=== PATIENT | female | born 1995 | race Caucasian/White ===

== ENCOUNTER 2018-08-28 09:38 | Outpatient (CLI) | payer OTHER ==
[~2018-08-28] VITALS: Ht 162.6 cm; Wt 72.4 kg
[2018-08-28] MEDS ORDERED: PREN-93 PO (09:50)
[2018-08-28 09:51] VITALS: BP 86/48; PULSE 128; RESP 18
[2018-08-28 09:52] VITALS: Ht 162.6 cm; Wt 72.4 kg
[2018-08-28] MEDS ORDERED: LACTATED RINGER'S 1,000 ML IV SCH (10:11)
[2018-08-28] MEDS ORDERED: ACETAMINOPHEN 500 MG TAB PO STA (10:11)
[2018-08-28] MEDS ORDERED: LACTATED RINGER'S 1,000 ML IV ONE (10:30)
[2018-08-28] MEDS ORDERED: ACET/BUTAL/CAFF TAB PO PRN (11:00)
[2018-08-28] MEDS ORDERED: NITROFURANTOIN (SR) 100 MG CAP PO STA (11:28)
[2018-08-28] MEDS ORDERED: NITR100C6 PO (11:32)
--- NOTE | 2018-08-28 11:33 | PN ---
Triage Information Date/Time Subjective: 23 year-old G 1 P at 30 1/7 weeks gestation presents with complaints of lower abdominal pain and headache. The patient reports the pain is a 7 out of 10 in severity. Worse with movement. Reports generalized chills. Denies any sore throat or cough. Denies any recent sick contacts or travel outside the [place]. Objective: Vitals: stable General: nad Musculo: no cva ttp Fundus: gravid SVE: per RN Extremities: nttp Electronic monit: 150 baseline/mod [place]/no decels/no accels BPP 09/29 Assessment/Plan: Disposition: discharge to home Reason for visit: Abd/pelvic pain Weeks of Gestation 30 02/28 /Para 1/0 Objective Vital Signs Date Temp Pulse Resp B/P (MAP) Pulse Ox O2 O2 Flow FiO2 Time Delivery Rate 08/28/18 99.9 11:15 08/28/18 128 18 86/48 (61) Room Air 09:51 Results/Medications Result Diagram: 08/28/18 1030 08/28/18 1030 Results 24 hrs Laboratory Tests Test 08/28/18 09:40 08/28/18 10:30 Urine Color YELLOW Urine Clarity SLIGHTLY CLOUDY A Urine pH 7.0 Urine Specific [place] 1.011 Urine Ketones TRACE A Urine Nitrite POSITIVE A Urine Bilirubin NEGATIVE Urine Urobilinogen NEGATIVE Urine Leukocyte Esterase TRACE A Urine Microscopic RBC 1 Urine Microscopic WBC 20 H Urine Squamous Epithelial Cells FEW Urine Bacteria FEW A Urine Hemoglobin NEGATIVE Urine Glucose NEGATIVE Urine Total Protein NEGATIVE White Blood Count 14.9 H Red Blood Count 3.10 L Hemoglobin 8.4 L Hematocrit 25.3 L Mean Corpuscular Volume 81.6 L Mean Corpuscular Hemoglobin 27.1 L Mean Corpuscular Hemoglobin Concent 33.2 Red Cell Distribution Width 13.9 Platelet Count 232 Mean Platelet Volume 9.9 Immature Granulocytes % 0.600 H Neutrophils % 86.5 H Lymphocytes % 5.5 L Monocytes % 7.2 Eosinophils % 0.0 Basophils % 0.2 Nucleated Red Blood Cells % 0.0 Immature Granulocytes # 0.090 H Neutrophils # 12.9 H Lymphocytes # 0.8 Monocytes # 1.1 H Eosinophils # 0.0 Basophils # 0.0 Nucleated Red Blood Cells # 0.0 Sodium Level 135 Potassium Level 3.7 Chloride Level 103 Carbon Dioxide Level 22 Anion Gap 10 Blood Urea Nitrogen 4 L Creatinine 0.48 Est Glomerular Filtrat Rate mL/min > 60 Glucose Level 119 Uric Acid 2.8 L Calcium Level 8.5 Total Bilirubin 0.6 Direct Bilirubin 0.00 Indirect Bilirubin 0.6 Aspartate Amino Transf (AST/SGOT) 19 Alanine Aminotransferase (ALT/SGPT) 15 Alkaline Phosphatase 85 Total Protein 6.7 Albumin 3.3 Globulin 3.40 H Albumin/Globulin Ratio 0.97 Medications Current Medications Lactated Ringer's 1,000 ml @ 150 mls/hr Q6H40M IV ; Start 08/28/18 at 10:11 Lactated Ringer's 1,000 ml @ 1,000 mls/hr Q1H ONCE IV Last administered on 08/28/18at 10:32; Admin Dose 1,000 MLS/HR; Start 08/28/18 at 10:30; Stop 08/28/18 at 11:29 Acetaminophen/ Butalbital/ Caffeine (Fioricet) 1 tab Q6H PRN PO PAIN; Start 08/28/18 at 11:00 RAFAEL ELLER MD Aug 28, 2018 11:33
--- NOTE | 2018-08-28 11:42 | TRIAGE ---
OB Triage Datetime Report Generated by CPN: 08/28/2018 11:41 Datetime: 08/28/2018 11:00 Stage of : OB Triage Maternal Assessment Level of Consciousness: Keenly Alert, Responsive Labor Evaluation Frequency: NONE Monitor Mode: External Resting Tone [place]: Relaxed Heart Rate FHR Baseline Rate: 150 Monitor Mode: External US Variability: Moderate 6-25 bpm Accelerations: 15X15 Decelerations: None Pain Assessment Pain Scale: 0 Pain Goal: 3 Vaginal Exam Membrane Status: Intact Vaginal Bleeding: None Datetime: 08/28/2018 09:48 Assessment Type: Triage Maternal Assessment Level of Consciousness: Keenly Alert, Responsive DTR's/Clonus: DTRs 2+; No Clonus Headache: Denies Blurred Vision: No Respiratory Effort: Unlabored; Regular Rhythm; Equal Expansion Breath Sounds, Left: Clear and Equal Breath Sounds, Right: Clear and Equal Nausea/Vomiting: Denies RUQ Epigastric Pain: Denies Lower Extremities Edema: None Degree: None Upper Extremities Edema: None Degree: None Facial Edema: None Fall Risk Assessment History of Falling: (0) No Secondary Diagnosis: (0) No Ambulatory Aid: (0) Bedrest/Nurse Assist IV Therapy: (0) No Gait: (0) Normal/Bedrest/Immobile Mental Status: (0) Oriented to Own Ability Fall Score: 0 Fall Risk Score Definition: No Risk: No action required Datetime: 08/28/2018 09:47 Time of Arrival: 08/28/2018 09:30 EGA: 30.1 Arrived By: Ambulatory Arrived From: Home Chief Complaint: pt. here C/O ABD. PAIN AND CHILLS Movement: Present Contractions: Denies/Absent Rupture of Membranes: Denies Vaginal Bleeding: None Vaginal Discharge: Denies Recent Sexual Intercouse: Yes Abdominal Trauma: Not Applicable Patient Complaints: Cramping Time Provider Notified: 08/28/2018 09:45 Provider Notified: MILESTONE Initial Plan: CBC/UA/IV/SVE/O2 SAT/PIH PANEL/EKG/02SAT/BPP Datetime: 08/28/2018 09:44 Monitor Mode: External Monitor Mode: External US
--- NOTE | 2018-08-28 16:02 | RADRPT ---
Vent Rate: 104 bpm RR Interval: 576 msec [place] Interval: 110 msec QRS Duration: 67 msec QT Interval: 321 msec QTC Interval: 423 msec P-R-T [place]: 58 - 54 - 38 degrees Sinus tachycardia...rate> 99 Electronically Signed By: Khoa Sanchez
== END 2018-08-28 12:15 | disposition home or self-care (01) ==
LOC: OBT 09:38 → L-D 09:38 → OBT 12:15
PROVIDERS: ATTEND Obstetrics & Gynecology
DX: O26.893 Other specified pregnancy related conditions, third trimester (principal); R10.2 Pelvic and perineal pain; R10.30 Lower abdominal pain, unspecified; R51 Headache; Z3A.30 30 weeks gestation of pregnancy
CPT/HCPCS: 36415; 76818; 80053; 81001; 84560; 85025; 87086; 93005; 96360; J7120; Z7500; Z7610; G0463

== ENCOUNTER 2018-09-18 13:52 | Inpatient (IN) | payer OTHER ==
[~2018-09-18] VITALS: Ht 162.6 cm; Wt 68.0 kg
[~2018-09-18 13:52] MED LIST: NITR100C6 PO; PREN-93 PO
[2018-09-18 14:17] VITALS: Ht 162.6 cm; Wt 68.0 kg
[2018-09-18 14:19] VITALS: BP 92/45; PULSE 105; RESP 22
--- NOTE | 2018-09-18 14:51 | HP ---
Date/Time of Note Date/Time of Note DATE: 09/18/18 TIME: 14:48 OB - History Hx of Present Free Text/Dictation @33+wks GA with Right CVA tenderness with hx of recurrent UTI : 1 Para: 0 Care: Good Care Ultrasounds: Normal mid trimester US Obstetrical Complications: None Medical Complications: None Past Family/Social History * Past Medical, Surgical, Family and Obstetric Histories reviewed from chart. Blood Type: O- OB Admission Exam Vital Signs Vital Signs Vital Signs Date Temp Pulse Resp B/P (MAP) Pulse Ox O2 O2 Flow FiO2 Time Delivery Rate 09/18/18 99.3 105 22 92/45 (61) Room Air 14:19 Physical Exam Abdomen: WNL Extremities: Normal Cervical Dilatation: None Effacement: 0% Station: Ballotable Membranes: Intact Heart Rate: 140's Accelerations: Accelerations Present Decelerations: No Decelerations Varibility: Moderate OB Assessment/Plan Reason for admission: observation Other Assessment: PMH Recurrent UTI PSH Denies Plan: Expectant Management Other plan: IV Antibiotics U/A U/C IV Hydration Close Observation ROGELIO ELLIS M.D. Sep 18, 2018 14:51
[2018-09-18] MEDS ORDERED: LACTATED RINGER'S 1,000 ML IV SCH (14:56)
--- NOTE | 2018-09-18 14:57 | TRIAGE ---
OB Triage Datetime Report Generated by CPN: 09/18/2018 14:56 Datetime: 09/18/2018 14:53 Time of Arrival: 09/18/2018 13:47 EGA: 33.1 Arrived By: Ambulatory Arrived From: Home Chief Complaint: BLADDER PAIN AND VOMITING Movement: Present Rupture of Membranes: Denies Vaginal Bleeding: None Vaginal Discharge: Denies Recent Sexual Intercouse: Denies Patient Complaints: Contractions Time Provider Notified: 09/18/2018 14:15 Provider Notified: DR HINDS Initial Plan: EFM,ALL DR HINDS Datetime: 09/18/2018 14:29 Maternal Assessment Level of Consciousness: Keenly Alert, Responsive DTR's/Clonus: DTRs 2+; No Clonus Headache: Denies Blurred Vision: No Respiratory Effort: Unlabored; Regular Rhythm; Equal Expansion Breath Sounds, Left: Clear and Equal Breath Sounds, Right: Clear and Equal Nausea/Vomiting: Denies RUQ Epigastric Pain: Denies Facial Edema: None Temperature Route: Axillary Fall Risk Assessment History of Falling: (0) No Secondary Diagnosis: (0) No Ambulatory Aid: (0) Bedrest/Nurse Assist IV Therapy: (0) No Gait: (0) Normal/Bedrest/Immobile Mental Status: (0) Oriented to Own Ability Fall Score: 0 Fall Risk Score Definition: No Risk: No action required Datetime: 09/18/2018 14:09 Maternal Assessment Level of Consciousness: Keenly Alert, Responsive DTR's/Clonus: DTRs 2+ Headache: Denies Blurred Vision: No Nausea/Vomiting: Denies RUQ Epigastric Pain: Denies Facial Edema: None Labor Evaluation Frequency: IRREG Monitor Mode: External Duration (sec)2399: 50 Quality: Mild Pattern: Normal: <= 5 Contractions in 10 Minutes Resting Tone [place]: Relaxed Heart Rate FHR Baseline Rate: 170 Monitor Mode: External US FHR Baseline Changes: No Baseline Change Variability: Moderate 6-25 bpm Decelerations: None Pain Assessment Pain Scale: 7 Pain Presence: Constant Pain Type: Stabbing Pain Location: Abdomen Pain Goal: 2 Datetime: 08/28/2018 09:48 Fall Score: 0 Fall Risk Score Definition: No Risk: No action required Datetime: 08/28/2018 09:47 EGA: 30.1
[2018-09-18] MEDS: SOD CHLORIDE 0.9% 1,000 ML IV SCH ×2 (15:48→22:39)
[2018-09-18] MEDS: CEFTRIAXONE 1 GM/50 ML (PMX) 50 ML IVPB SCH (16:13)
[2018-09-18] MEDS ORDERED: ACETAMINOPHEN 325 MG TAB PO PRN (22:00)
[2018-09-19] MEDS: SOD CHLORIDE 0.9% 1,000 ML IV SCH ×3 (06:21→23:09)
[2018-09-19] MEDS: FERROUS SULFATE (EC) 325 MG TAB PO SCH ×2 (09:08→20:56)
[2018-09-19] MEDS: PRENATAL VITAMIN PO SCH (09:08)
--- NOTE | 2018-09-19 12:44 | QN ---
Documentation Comment progress note patient seen and evaluated no complaints vs stable afebrile ab gravid, left cva tenderness extremity no sage no calf tenderness fhr cat 1 toco no ctx a/ iup at 33 wks ga, pyelonephritis currently on iv antibiotics p/ continue present management LEWIS HINDS MD Sep 19, 2018 12:44
--- NOTE | 2018-09-19 13:26 | RADRPT ---
Vent Rate: 113 bpm RR Interval: 532 msec [place] Interval: 106 msec QRS Duration: 71 msec QT Interval: 309 msec QTC Interval: 424 msec P-R-T [place]: 29 - 66 - -1 degrees Sinus tachycardia...rate> 99 Electronically Signed By: Khoa Sanchez
[2018-09-19] MEDS: CEFTRIAXONE 1 GM/50 ML (PMX) 50 ML IVPB SCH (16:02)
[2018-09-20] MEDS: PRENATAL VITAMIN PO SCH (10:02)
[2018-09-20] MEDS: FERROUS SULFATE (EC) 325 MG TAB PO SCH (10:02)
[2018-09-20] MEDS: SOD CHLORIDE 0.9% 1,000 ML IV SCH (10:03)
--- NOTE | 2018-09-21 02:32 | DS ---
DATE OF ADMISSION: 09/18/2018 DATE OF DISCHARGE: 09/20/2018 PRIMARY DIAGNOSES: Intrauterine at 33 weeks gestational age, pyelonephritis, undelivered. PROCEDURE: None. CONDITION ON DISCHARGE: Stable. ACTIVITY: As tolerated. DIET: Regular. MEDICATIONS ON DISCHARGE: Keflex 500 mg p.o. t.i.d., #21. DISCHARGE SUMMARY: Ms. Kena Anthony presented to triage on 09/18/2018 for suspected pyelonephritis. She was started on IV antibiotics and her urine culture returned to be positive for Strep agalactiae group B. She will be discharged on the above medication. She currently denies any headache, nausea , vomiting, shortness of breath, or visual changes. She has no CVA tenderness. She will follow up w ith her primary OB in approximately 1 week. Strict and kick counts were given to rita anders. Dictated By: LEWIS AGUILERA/AMAYA Conf#: [id number] DID#: [id number]
== END 2018-09-20 18:15 | disposition home or self-care (01) | DRG 833 ==
LOC: L-D 13:52 → OBT 13:52 → L-D 14:45 → OBT 14:45 → L-D 18:49 → UNDODISIN 09-20 18:16
PROVIDERS: ADMIT Obstetrics & Gynecology; ATTEND Obstetrics & Gynecology
DX: O23.03 Infections of kidney in pregnancy, third trimester (principal); B95.1 Streptococcus, group B, as the cause of diseases classified elsewhere; Z3A.33 33 weeks gestation of pregnancy
CPT/HCPCS: 76705; 76815; 80307; 81003; 82731; 84484; 85025; 87086; 93005; G0463; J0696; J7030; J7120

== ENCOUNTER 2018-10-02 19:46 | Outpatient (CLI) | payer OTHER ==
[~2018-10-02] VITALS: Ht 162.6 cm; Wt 72.3 kg
[2018-10-02 19:59] VITALS: BP 104/61; PULSE 94; RESP 18; Ht 162.6 cm; Wt 72.3 kg
--- NOTE | 2018-10-02 21:47 | PN ---
Triage Information Date/Time Reason for visit: s/p fall Weeks of Gestation 35 weeks /Para Diabetes: none Hypertention: none Objective Vital Signs Date Temp Pulse Resp B/P (MAP) Pulse Ox O2 O2 Flow FiO2 Time Delivery Rate 10/02/18 97.9 94 18 104/61 Room Air 19:59 (75) Heart Rate: 130's Heart Rate Comments Reactive Results/Medications Result Diagram: 10/02/182047 Results 24 hrs Laboratory Tests Test 10/02/18 20:48 White Blood Count 9.6 # Red Blood Count 3.25 L Hemoglobin 8.5 L Hematocrit 26.6 L Mean Corpuscular Volume 81.8 L Mean Corpuscular Hemoglobin 26.2 L Mean Corpuscular Hemoglobin Concent 32.0 Red Cell Distribution Width 14.3 Platelet Count 292 Mean Platelet Volume 10.0 Immature Granulocytes % 0.900 H Neutrophils % 68.8 Lymphocytes % 21.1 Monocytes % 8.0 Eosinophils % 0.8 Basophils % 0.4 Nucleated Red Blood Cells % 0.0 Immature Granulocytes # 0.090 H Neutrophils # 6.6 Lymphocytes # 2.0 Monocytes # 0.8 Eosinophils # 0.1 Basophils # 0.0 Nucleated Red Blood Cells # 0.0 Imaging Results BPP 09/29 No evidence of abruption or previa Disposition: Assessment/Plan Patient fell at home on her abdomen. Patient denies any leakage of fluid or vaginal bleeding. Patient denies any pain. Patient is counseled about the need for continuous monitoring. Patient is counseled about the potential for abruptio placentae. Patient stated she understood and signed out against medical advice. MIGUEL SETHI MD Oct 02, 2018 21:47
--- NOTE | 2018-10-02 22:48 | TRIAGE ---
OB Triage Datetime Report Generated by CPN: 10/02/2018 22:48 Datetime: 10/02/2018 20:13 Stage of : OB Triage Labor Evaluation Frequency: none Monitor Mode: External Resting Tone [place]: Relaxed Heart Rate FHR Baseline Rate: 135 Monitor Mode: External US Variability: Moderate 6-25 bpm Accelerations: 15X15 Decelerations: None Category: Category I Pain Assessment Pain Scale: 0 Pain Presence: None/Denies Pain Type: N/A Pain Relief Measures: Comfort Measures Datetime: 10/02/2018 20:12 Stage of : OB Triage Datetime: 10/02/2018 20:02 Stage of : OB Triage Assessment Type: Triage Maternal Assessment Level of Consciousness: Keenly Alert, Responsive DTR's/Clonus: DTRs 2+; No Clonus Headache: Denies Blurred Vision: No Respiratory Effort: Unlabored; Regular Rhythm; Equal Expansion Breath Sounds, Left: Clear and Equal Breath Sounds, Right: Clear and Equal Nausea/Vomiting: Denies RUQ Epigastric Pain: Denies Lower Extremities Edema: None Degree: None Upper Extremities Edema: None Degree: None Facial Edema: None Temperature Route: Oral Fall Risk Assessment History of Falling: (0) No Secondary Diagnosis: (0) No Ambulatory Aid: (0) Bedrest/Nurse Assist IV Therapy: (0) No Gait: (0) Normal/Bedrest/Immobile Mental Status: (0) Oriented to Own Ability Fall Score: 0 Fall Risk Score Definition: No Risk: No action required Monitor Mode: External Monitor Mode: External US Pain Assessment Pain Scale: 0 Pain Presence: None/Denies Pain Type: N/A Pain Relief Measures: Comfort Measures Datetime: 10/02/2018 20:01 Time of Arrival: 10/02/2018 19:40 EGA: 35.1 Arrived By: Ambulatory Arrived From: Emergency Dept Chief Complaint: Patient fell onto her stomach at home. Denies any pain, leaking, or bleeding. Movement: Present Contractions: Denies/Absent Rupture of Membranes: Denies Vaginal Bleeding: None Vaginal Discharge: Denies Recent Sexual Intercouse: Denies Abdominal Trauma: Fall Patient Complaints: Other Time Provider Notified: 10/02/2018 20:12 Provider Notified: Initial Plan: EFM, VS, US, CBC, Type _ Screen Datetime: 09/20/2018 16:53 Stage of : Antepartum Temperature Route: Oral Datetime: 09/20/2018 12:02 Pain Presence: None/Denies Datetime: 09/20/2018 12:00 Stage of : Antepartum Maternal Assessment Level of Consciousness: Keenly Alert, Responsive Labor Evaluation Frequency: 1UC/HR Monitor Mode: External Duration (sec)2399: 90 Quality: Mild Resting Tone [place]: Relaxed Heart Rate FHR Baseline Rate: 135 Monitor Mode: External US Variability: Moderate 6-25 bpm Accelerations: 15X15 Decelerations: None Category: Category I Pain Assessment Pain Scale: 0 Pain Goal: 3 Membrane Status: Intact Vaginal Bleeding: None Datetime: 09/20/2018 11:00 Stage of : Antepartum Maternal Assessment Level of Consciousness: Keenly Alert, Responsive Labor Evaluation Frequency: 4UC/HR Monitor Mode: External Duration (sec)2399: 80-100 Quality: Mild Resting Tone [place]: Relaxed Heart Rate FHR Baseline Rate: 135 Monitor Mode: External US Variability: Moderate 6-25 bpm Accelerations: 15X15 Decelerations: None Category: Category I Pain Assessment Pain Scale: 0 Pain Goal: 3 Membrane Status: Intact Vaginal Bleeding: None Datetime: 09/20/2018 10:04 Assessment Type: Ongoing Assessment Maternal Assessment Level of Consciousness: Keenly Alert, Responsive DTR's/Clonus: DTRs 2+; No Clonus Headache: Denies Blurred Vision: No Respiratory Effort: Unlabored; Regular Rhythm; Equal Expansion Breath Sounds, Left: Clear and Equal Breath Sounds, Right: Clear and Equal Nausea/Vomiting: Denies RUQ Epigastric Pain: Denies Lower Extremities Edema: Bilateral Lower Extremities Degree: TRACE Upper Extremities Edema: None Degree: None Facial Edema: None Fall Risk Assessment History of Falling: (0) No Secondary Diagnosis: (0) No Ambulatory Aid: (0) Bedrest/Nurse Assist IV Therapy: (20) Yes Gait: (0) Normal/Bedrest/Immobile Mental Status: (0) Oriented to Own Ability Fall Score: 20 Fall Risk Score Definition: No Risk: No action required Datetime: 09/20/2018 10:03 Pain Assessment Pain Scale: 0 Pain Presence: None/Denies Datetime: 09/20/2018 10:00 Stage of : Antepartum Maternal Assessment Level of Consciousness: Keenly Alert, Responsive Labor Evaluation Frequency: 0 Monitor Mode: External Resting Tone [place]: Relaxed Heart Rate FHR Baseline Rate: 125 Monitor Mode: External US Variability: Moderate 6-25 bpm Accelerations: 15X15 Decelerations: None Category: Category I Pain Assessment Pain Scale: 0 Pain Goal: 3 Membrane Status: Intact Vaginal Bleeding: None Datetime: 09/20/2018 09:00 Stage of : Antepartum Maternal Assessment Level of Consciousness: Keenly Alert, Responsive Labor Evaluation Frequency: 3UC/HR Monitor Mode: External Duration (sec)2399: 60-90 Quality: Mild Resting Tone [place]: Relaxed Heart Rate FHR Baseline Rate: 125 Monitor Mode: External US Variability: Moderate 6-25 bpm Accelerations: 15X15 Decelerations: None Category: Category I Pain Assessment Pain Scale: 0 Pain Goal: 3 Membrane Status: Intact Vaginal Bleeding: None Datetime: 09/20/2018 08:00 Stage of : Antepartum Maternal Assessment Level of Consciousness: Keenly Alert, Responsive Labor Evaluation Frequency: 2UC/HR Monitor Mode: External Duration (sec)2399: 90-110 Quality: Mild Resting Tone [place]: Relaxed Heart Rate FHR Baseline Rate: 125 Monitor Mode: External US Variability: Moderate 6-25 bpm Accelerations: 15X15 Decelerations: None Category: Category I Pain Assessment Pain Scale: 0 Pain Goal: 3 Membrane Status: Intact Vaginal Bleeding: None Datetime: 09/20/2018 07:02 Labor Evaluation Frequency: NONE Monitor Mode: External Heart Rate FHR Baseline Rate: 125 Monitor Mode: External US FHR Baseline Changes: No Baseline Change Variability: Moderate 6-25 bpm Accelerations: 15X15 Decelerations: None Category: Category I Datetime: 09/20/2018 06:00 Labor Evaluation Frequency: OCCA Monitor Mode: External Quality: Mild Pattern: Normal: <= 5 Contractions in 10 Minutes Resting Tone [place]: Relaxed Heart Rate FHR Baseline Rate: 130 Monitor Mode: External US FHR Baseline Changes: No Baseline Change Variability: Moderate 6-25 bpm Accelerations: 15X15 Decelerations: None Category: Category I Datetime: 09/20/2018 05:00 Labor Evaluation Frequency: NONE Monitor Mode: External Heart Rate FHR Baseline Rate: 125 Monitor Mode: External US FHR Baseline Changes: No Baseline Change Variability: Moderate 6-25 bpm Accelerations: 15X15 Decelerations: None Category: Category I Datetime: 09/20/2018 04:00 Labor Evaluation Frequency: NONE Monitor Mode: External Heart Rate FHR Baseline Rate: 135 Monitor Mode: External US FHR Baseline Changes: No Baseline Change Variability: Moderate 6-25 bpm Accelerations: 15X15 Decelerations: None Category: Category I Datetime: 09/20/2018 03:00 Labor Evaluation Frequency: NONE Monitor Mode: External Heart Rate FHR Baseline Rate: 125 Monitor Mode: External US FHR Baseline Changes: No Baseline Change Variability: Moderate 6-25 bpm Accelerations: 15X15 Decelerations: None Category: Category I Datetime: 09/20/2018 01:59 Labor Evaluation Frequency: NONE Monitor Mode: External Heart Rate FHR Baseline Rate: 125 Monitor Mode: External US FHR Baseline Changes: No Baseline Change Variability: Moderate 6-25 bpm Accelerations: 15X15 Decelerations: None Category: Category I Comments: FHR TRACING INTERMITTENTLY Datetime: 09/20/2018 01:00 Labor Evaluation Frequency: IRRIT Monitor Mode: External Quality: Mild Heart Rate FHR Baseline Rate: 130 Monitor Mode: External US FHR Baseline Changes: No Baseline Change Variability: Moderate 6-25 bpm Accelerations: 15X15 Decelerations: None Category: Category I Datetime: 09/20/2018 00:00 Labor Evaluation Frequency: NONE Monitor Mode: External Pattern: Normal: <= 5 Contractions in 10 Minutes Resting Tone [place]: Relaxed Heart Rate FHR Baseline Rate: 130 Monitor Mode: External US FHR Baseline Changes: No Baseline Change Variability: Moderate 6-25 bpm Accelerations: 15X15 Decelerations: None Category: Category I Datetime: 09/19/2018 23:10 Labor Evaluation Frequency: NONE Monitor Mode: External Pattern: Normal: <= 5 Contractions in 10 Minutes Resting Tone [place]: Relaxed Heart Rate FHR Baseline Rate: 130 Monitor Mode: External US FHR Baseline Changes: No Baseline Change Variability: Moderate 6-25 bpm Accelerations: 15X15 Decelerations: None Category: Category I Datetime: 09/19/2018 22:00 Labor Evaluation Frequency: NONE Monitor Mode: External Pattern: Normal: <= 5 Contractions in 10 Minutes Resting Tone [place]: Relaxed Heart Rate FHR Baseline Rate: 130 Monitor Mode: External US FHR Baseline Changes: No Baseline Change Variability: Moderate 6-25 bpm Accelerations: 15X15 Decelerations: None Category: Category I Datetime: 09/19/2018 21:00 Labor Evaluation Frequency: NONE Monitor Mode: External Pattern: Normal: <= 5 Contractions in 10 Minutes Resting Tone [place]: Relaxed Heart Rate FHR Baseline Rate: 135 Monitor Mode: External US FHR Baseline Changes: No Baseline Change Variability: Moderate 6-25 bpm Accelerations: 10X10 Decelerations: None Category: Category I Datetime: 09/19/2018 20:05 Assessment Type: Ongoing Assessment Maternal Assessment Level of Consciousness: Keenly Alert, Responsive Headache: Denies Blurred Vision: No Respiratory Effort: Unlabored; Regular Rhythm; Equal Expansion Nausea/Vomiting: Denies RUQ Epigastric Pain: Denies Lower Extremities Edema: None Degree: None Upper Extremities Edema: None Degree: None Facial Edema: None Fall Risk Assessment History of Falling: (0) No Secondary Diagnosis: (0) No Ambulatory Aid: (0) Bedrest/Nurse Assist IV Therapy: (20) Yes Gait: (0) Normal/Bedrest/Immobile Mental Status: (0) Oriented to Own Ability Fall Score: 20 Fall Risk Score Definition: No Risk: No action required Pain Assessment Pain Scale: 3 Pain Presence: Intermittent Pain Assessment Comments: PT REPORTS INTERMITTENT BLADDER DISCOMFORT. Membrane Status: Intact Vaginal Bleeding: None Datetime: 09/19/2018 20:00 Labor Evaluation Frequency: NONE Monitor Mode: External Pattern: Normal: <= 5 Contractions in 10 Minutes Resting Tone [place]: Relaxed Heart Rate FHR Baseline Rate: 135 Monitor Mode: External US FHR Baseline Changes: No Baseline Change Variability: Moderate 6-25 bpm Accelerations: 15X15 Decelerations: None Category: Category I Datetime: 09/19/2018 19:00 Labor Evaluation Frequency: OCC Monitor Mode: External Quality: Mild Pattern: Normal: <= 5 Contractions in 10 Minutes Resting Tone [place]: Relaxed Heart Rate FHR Baseline Rate: 130 Monitor Mode: External US FHR Baseline Changes: No Baseline Change Variability: Moderate 6-25 bpm Accelerations: 15X15 Decelerations: None Category: Category I Pain Presence: None/Denies Datetime: 09/19/2018 18:02 Labor Evaluation Frequency: 0 Monitor Mode: External Heart Rate FHR Baseline Rate: 130 Monitor Mode: External US FHR Baseline Changes: No Baseline Change Variability: Moderate 6-25 bpm Accelerations: 15X15 Decelerations: None Category: Category I Pain Presence: None/Denies Datetime: 09/19/2018 17:04 Labor Evaluation Frequency: OCC Monitor Mode: External Quality: Mild Pattern: Normal: <= 5 Contractions in 10 Minutes Resting Tone [place]: Relaxed Heart Rate FHR Baseline Rate: 135 Monitor Mode: External US FHR Baseline Changes: No Baseline Change Variability: Moderate 6-25 bpm Accelerations: 15X15 Decelerations: None Category: Category I Pain Presence: None/Denies Datetime: 09/19/2018 16:06 Labor Evaluation Frequency: OCC Monitor Mode: External Quality: Mild Pattern: Normal: <= 5 Contractions in 10 Minutes Resting Tone [place]: Relaxed Heart Rate FHR Baseline Rate: 130 Monitor Mode: External US FHR Baseline Changes: No Baseline Change Variability: Moderate 6-25 bpm Accelerations: 15X15 Decelerations: None Category: Category I Pain Presence: None/Denies Datetime: 09/19/2018 15:00 Stage of : Antepartum Maternal Assessment Level of Consciousness: Keenly Alert, Responsive DTR's/Clonus: DTRs 1+ Headache: Denies Breath Sounds, Left: Clear and Equal Breath Sounds, Right: Clear and Equal Nausea/Vomiting: Denies RUQ Epigastric Pain: Denies Monitor Mode: External Resting Tone [place]: Relaxed Heart Rate FHR Baseline Rate: 135 Monitor Mode: External US FHR Baseline Changes: No Baseline Change Variability: Moderate 6-25 bpm Accelerations: 15X15 Decelerations: None Category: Category I Pain Assessment Pain Scale: 0 Pain Presence: None/Denies Pain Type: N/A Pain Goal: 0 Datetime: 09/19/2018 14:00 Stage of : Antepartum Maternal Assessment Level of Consciousness: Keenly Alert, Responsive DTR's/Clonus: DTRs 1+ Headache: Denies Breath Sounds, Left: Clear and Equal Breath Sounds, Right: Clear and Equal Nausea/Vomiting: Denies RUQ Epigastric Pain: Denies Labor Evaluation Frequency: X2 Monitor Mode: External Duration (sec)2399: 30-50 Quality: Mild Pattern: Normal: <= 5 Contractions in 10 Minutes Resting Tone [place]: Relaxed Heart Rate FHR Baseline Rate: 135 Monitor Mode: External US FHR Baseline Changes: No Baseline Change Variability: Moderate 6-25 bpm Accelerations: 15X15 Decelerations: None Category: Category I Pain Assessment Pain Scale: 0 Pain Presence: None/Denies Pain Type: N/A Pain Goal: 0 Datetime: 09/19/2018 12:56 Stage of : Antepartum Maternal Assessment Level of Consciousness: Keenly Alert, Responsive DTR's/Clonus: DTRs 1+ Headache: Denies Breath Sounds, Left: Clear and Equal Breath Sounds, Right: Clear and Equal Nausea/Vomiting: Denies RUQ Epigastric Pain: Denies Labor Evaluation Frequency: X1 Monitor Mode: External Duration (sec)2399: 30-50 Quality: Mild Pattern: Normal: <= 5 Contractions in 10 Minutes Resting Tone [place]: Relaxed Heart Rate FHR Baseline Rate: 140 Monitor Mode: External US FHR Baseline Changes: No Baseline Change Variability: Moderate 6-25 bpm Accelerations: 15X15 Decelerations: None Category: Category I Pain Assessment Pain Scale: 0 Pain Presence: None/Denies Pain Type: N/A Pain Goal: 0 Datetime: 09/19/2018 12:00 Stage of : Antepartum Maternal Assessment Level of Consciousness: Keenly Alert, Responsive DTR's/Clonus: DTRs 1+ Headache: Denies Breath Sounds, Left: Clear and Equal Breath Sounds, Right: Clear and Equal Nausea/Vomiting: Denies RUQ Epigastric Pain: Denies Labor Evaluation Frequency: X2 Monitor Mode: External Duration (sec)2399: 30-50 Quality: Mild Pattern: Normal: <= 5 Contractions in 10 Minutes Resting Tone [place]: Relaxed Heart Rate FHR Baseline Rate: 140 Monitor Mode: External US FHR Baseline Changes: No Baseline Change Variability: Moderate 6-25 bpm Accelerations: 15X15 Decelerations: None Category: Category I Pain Assessment Pain Scale: 0 Pain Presence: None/Denies Pain Type: N/A Pain Goal: 0 Datetime: 09/19/2018 11:43 Stage of : Antepartum Datetime: 09/19/2018 11:20 Stage of : Antepartum Datetime: 09/19/2018 11:00 Stage of : Antepartum Maternal Assessment Level of Consciousness: Keenly Alert, Responsive DTR's/Clonus: DTRs 1+ Headache: Denies Breath Sounds, Left: Clear and Equal Breath Sounds, Right: Clear and Equal Nausea/Vomiting: Denies RUQ Epigastric Pain: Denies Labor Evaluation Frequency: NONE Monitor Mode: External Resting Tone [place]: Relaxed Heart Rate FHR Baseline Rate: 140 Monitor Mode: External US FHR Baseline Changes: No Baseline Change Variability: Moderate 6-25 bpm Accelerations: 15X15 Decelerations: None Category: Category I Pain Assessment Pain Scale: 0 Pain Presence: None/Denies Pain Type: N/A Pain Goal: 0 Pain Assessment Comments: DENIES ANY PAIN AT THIS TIME Datetime: 09/19/2018 10:45 Stage of : Antepartum Datetime: 09/19/2018 10:00 Labor Evaluation Frequency: 0 Monitor Mode: External Pattern: Normal: <= 5 Contractions in 10 Minutes Resting Tone [place]: Relaxed Contraction Comments: pt states she does not feel any UCs Heart Rate FHR Baseline Rate: 140 Monitor Mode: External US FHR Baseline Changes: No Baseline Change Variability: Moderate 6-25 bpm Accelerations: 15X15 Decelerations: None Category: Category I Datetime: 09/19/2018 09:00 Labor Evaluation Frequency: occasional X2 Monitor Mode: External Duration (sec)2399: 40-50 Quality: Mild Pattern: Normal: <= 5 Contractions in 10 Minutes Resting Tone [place]: Relaxed Heart Rate FHR Baseline Rate: 140 Monitor Mode: External US FHR Baseline Changes: No Baseline Change Variability: Moderate 6-25 bpm Accelerations: 15X15 Decelerations: None Category: Category I Pain Presence: None/Denies Pain Type: N/A Datetime: 09/19/2018 08:20 Assessment Type: Ongoing Assessment Maternal Assessment Level of Consciousness: Keenly Alert, Responsive DTR's/Clonus: DTRs 2+; No Clonus Headache: Generalized (Annotations: INTERMITTENT) Blurred Vision: No Respiratory Effort: Unlabored; Regular Rhythm; Equal Expansion Breath Sounds, Left: Clear and Equal Breath Sounds, Right: Clear and Equal Nausea/Vomiting: Denies RUQ Epigastric Pain: Denies Lower Extremities Edema: Bilateral Lower Extremities Degree: TRACE Upper Extremities Edema: None Degree: None Facial Edema: None Fall Risk Assessment History of Falling: (0) No Secondary Diagnosis: (0) No Ambulatory Aid: (0) Bedrest/Nurse Assist IV Therapy: (20) Yes Gait: (0) Normal/Bedrest/Immobile Mental Status: (0) Oriented to Own Ability Fall Score: 20 Fall Risk Score Definition: No Risk: No action required Datetime: 09/19/2018 08:17 Pain Presence: Intermittent Pain Type: Dull Pain Location: Head Pain Relief Measures: Comfort Measures Pain Assessment Comments: PT IS COMPLAING OF INTERMITTENT HEADACHE. PAIN COMES WHEN SHE SITS UP. BP TAKEN, 100/50. PT DENIES PAIN MEDICATION Datetime: 09/19/2018 08:00 Labor Evaluation Frequency: 0 Monitor Mode: External Heart Rate FHR Baseline Rate: 145 Monitor Mode: External US FHR Baseline Changes: No Baseline Change Variability: Moderate 6-25 bpm Accelerations: 15X15 Decelerations: None Category: Category I Pain Presence: None/Denies Pain Type: N/A Datetime: 09/19/2018 07:00 Labor Evaluation Frequency: 0 Monitor Mode: External Heart Rate FHR Baseline Rate: 140 Monitor Mode: External US FHR Baseline Changes: No Baseline Change Variability: Moderate 6-25 bpm Accelerations: 15X15 Decelerations: None Category: Category I Datetime: 09/19/2018 06:28 Temperature Route: Oral Datetime: 09/19/2018 06:00 Labor Evaluation Frequency: IRREG Monitor Mode: External Duration (sec)2399: 20-80 Quality: Mild Contraction Comments: SOME INVERTED Heart Rate FHR Baseline Rate: 140 Monitor Mode: External US FHR Baseline Changes: No Baseline Change Variability: Moderate 6-25 bpm Accelerations: 15X15 Decelerations: None Category: Category I Datetime: 09/19/2018 05:00 Labor Evaluation Frequency: IRREG Monitor Mode: External Duration (sec)2399: 20-90 Quality: Mild Heart Rate FHR Baseline Rate: 140 Monitor Mode: External US FHR Baseline Changes: No Baseline Change Variability: Moderate 6-25 bpm Accelerations: 15X15 Decelerations: None Category: Category I Datetime: 09/19/2018 04:03 Maternal Assessment Level of Consciousness: Keenly Alert, Responsive Temperature Route: Oral Pain Assessment Pain Scale: 0 Datetime: 09/19/2018 04:00 Labor Evaluation Frequency: 0 Monitor Mode: External Heart Rate FHR Baseline Rate: 140 Monitor Mode: External US FHR Baseline Changes: No Baseline Change Variability: Moderate 6-25 bpm Accelerations: 15X15 Decelerations: None Category: Category I Datetime: 09/19/2018 03:00 Labor Evaluation Frequency: IRREG Monitor Mode: External Duration (sec)2399: 15-100 Quality: Mild Heart Rate FHR Baseline Rate: 140 Monitor Mode: External US FHR Baseline Changes: No Baseline Change Variability: Moderate 6-25 bpm Accelerations: 15X15 Decelerations: None Category: Category I Datetime: 09/19/2018 02:00 Labor Evaluation Frequency: X2 Monitor Mode: External Duration (sec)2399: 100 Quality: Mild Heart Rate FHR Baseline Rate: 145 Monitor Mode: External US FHR Baseline Changes: No Baseline Change Variability: Moderate 6-25 bpm Accelerations: 15X15 Decelerations: None Category: Category I Datetime: 09/19/2018 01:43 Maternal Assessment Level of Consciousness: Keenly Alert, Responsive Temperature Route: Oral Datetime: 09/19/2018 01:00 Labor Evaluation Frequency: X3 Monitor Mode: External Duration (sec)2399: 80-120 Quality: Mild Heart Rate FHR Baseline Rate: 140 Monitor Mode: External US FHR Baseline Changes: No Baseline Change Variability: Moderate 6-25 bpm Accelerations: 15X15 Decelerations: None Category: Category I Datetime: 09/19/2018 00:00 Labor Evaluation Frequency: X3 Monitor Mode: External Duration (sec)2399: 40-60 Quality: Mild Heart Rate FHR Baseline Rate: 155 Monitor Mode: External US FHR Baseline Changes: No Baseline Change Variability: Moderate 6-25 bpm Accelerations: 15X15 Decelerations: None Category: Category I Datetime: 09/18/2018 23:16 Maternal Assessment Level of Consciousness: Keenly Alert, Responsive Temperature Route: Oral Pain Assessment Pain Scale: 0 Datetime: 09/18/2018 23:00 Labor Evaluation Frequency: OCC Monitor Mode: External Heart Rate FHR Baseline Rate: 160 Monitor Mode: External US FHR Baseline Changes: No Baseline Change Variability: Moderate 6-25 bpm Accelerations: 15X15 Decelerations: None Category: Category I Datetime: 09/18/2018 22:35 Temperature Route: Oral Datetime: 09/18/2018 22:00 Temperature Route: Oral Labor Evaluation Frequency: IRREG Monitor Mode: External Quality: Mild Heart Rate FHR Baseline Rate: 180 Monitor Mode: External US FHR Baseline Changes: Tachycardia Variability: Moderate 6-25 bpm Accelerations: 15X15 Decelerations: None Category: Category II Datetime: 09/18/2018 21:45 Temperature Route: Oral Datetime: 09/18/2018 21:00 Labor Evaluation Frequency: IRREG Monitor Mode: External Duration (sec)2399: 20-70 Quality: Mild Heart Rate FHR Baseline Rate: 135 Monitor Mode: External US FHR Baseline Changes: No Baseline Change Variability: Moderate 6-25 bpm Accelerations: 15X15 Decelerations: None Category: Category I Datetime: 09/18/2018 20:30 Temperature Route: Oral Datetime: 09/18/2018 20:00 Labor Evaluation Frequency: IRREG Monitor Mode: External Duration (sec)2399: 30-80 Quality: Mild Heart Rate FHR Baseline Rate: 160 Monitor Mode: External US FHR Baseline Changes: No Baseline Change Variability: Moderate 6-25 bpm Accelerations: 15X15 Decelerations: None Category: Category I Pain Assessment Pain Scale: 0 Pain Assessment Comments: DENIES CHEST, HEART OR ABD PAIN. NO N/V AT THIS TIME. HAS EATEN DINNER A ND ALSO EXTRA PBJ SANDWICHES, TEA, FRUIT. Datetime: 09/18/2018 19:48 Assessment Type: Ongoing Assessment Maternal Assessment Level of Consciousness: Keenly Alert, Responsive Headache: Denies Blurred Vision: No Respiratory Effort: Unlabored; Regular Rhythm; Equal Expansion Breath Sounds, Left: Clear and Equal Breath Sounds, Right: Clear and Equal Nausea/Vomiting: Denies RUQ Epigastric Pain: Denies Lower Extremities Edema: None Upper Extremities Edema: None Facial Edema: None Temperature Route: Oral Fall Risk Assessment History of Falling: (0) No Secondary Diagnosis: (0) No Ambulatory Aid: (0) Bedrest/Nurse Assist IV Therapy: (20) Yes Gait: (0) Normal/Bedrest/Immobile Mental Status: (0) Oriented to Own Ability Fall Score: 20 Fall Risk Score Definition: No Risk: No action required Pain Assessment Pain Scale: 0 Datetime: 09/18/2018 19:25 Stage of : Antepartum Datetime: 09/18/2018 19:00 Maternal Assessment Level of Consciousness: Keenly Alert, Responsive Headache: Denies Blurred Vision: No Nausea/Vomiting: Hx of Nausea/Vomiting RUQ Epigastric Pain: Denies Facial Edema: None Labor Evaluation Frequency: 2-5 Monitor Mode: External Duration (sec)2399: 40-90 Quality: Mild Resting Tone [place]: Relaxed Heart Rate FHR Baseline Rate: 170 Monitor Mode: External US FHR Baseline Changes: Tachycardia Variability: Moderate 6-25 bpm Accelerations: 15X15 Decelerations: None Pain Assessment Pain Scale: 7 Pain Presence: Intermittent Pain Type: Contraction Pain Location: Abdomen Pain Assessment Comments: PT REPORTS THAT SHE DOES NOT FEEL PAIN IN HER BLADDER A THIS TIME; PT REP ORTS SHARP PAIN IN HER HEART RIGHT NOW. Datetime: 09/18/2018 18:01 Maternal Assessment Level of Consciousness: Keenly Alert, Responsive Headache: Denies Blurred Vision: No Nausea/Vomiting: Hx of Nausea/Vomiting RUQ Epigastric Pain: Denies Facial Edema: None Labor Evaluation Frequency: 2-5 Monitor Mode: External Quality: Mild Pattern: Normal: <= 5 Contractions in 10 Minutes Resting Tone [place]: Relaxed Heart Rate FHR Baseline Rate: 165 Monitor Mode: External US FHR Baseline Changes: Tachycardia Variability: Moderate 6-25 bpm Accelerations: 15X15 Decelerations: None Pain Assessment Pain Scale: 6 Pain Presence: Intermittent Pain Type: Dull; Sharp; Contraction Pain Location: Abdomen Pain Assessment Comments: PT REPORTS OCCASIONAL PAIN WITH CTX AND PAIN IN BLADDER. Datetime: 09/18/2018 17:44 Maternal Assessment Level of Consciousness: Keenly Alert, Responsive Headache: Denies Blurred Vision: No Nausea/Vomiting: Hx of Nausea/Vomiting RUQ Epigastric Pain: Denies Facial Edema: None Monitor Mode: External Monitor Mode: External US Pain Assessment Pain Scale: 6 Pain Presence: Constant Pain Type: Dull; Sharp; Contraction Pain Location: Abdomen Pain Assessment Comments: PT REPORTS OCCASIONAL PAIN WITH CTX, AND CONSTANT PAIN IN HER BLADDER. Datetime: 09/18/2018 17:23 Vaginal Exam Dilatation (cms): 0.0 Effacement (%): 0 Station: -3 Exam By: [email or web address] Vaginal Bleeding: None Cervix, Consistency: Firm Cervix, Position: Posterior Presentation 'A': Unable to Assess Datetime: 09/18/2018 17:00 Maternal Assessment Level of Consciousness: Keenly Alert, Responsive Headache: Denies Blurred Vision: No Nausea/Vomiting: Hx of Nausea/Vomiting RUQ Epigastric Pain: Denies Facial Edema: None Labor Evaluation Frequency: 2-15 Monitor Mode: External Duration (sec)2399: 40-60 Quality: Mild Pattern: Normal: <= 5 Contractions in 10 Minutes Resting Tone [place]: Relaxed Heart Rate FHR Baseline Rate: 165 Monitor Mode: External US FHR Baseline Changes: Tachycardia Variability: Moderate 6-25 bpm Accelerations: 15X15 Comments: POSSIBLE VARIABLES, OR LOSS OF CONTACT. Pain Assessment Pain Scale: 4 Pain Presence: Intermittent Pain Type: Contraction Pain Location: Abdomen Datetime: 09/18/2018 16:10 Monitor Mode: External Monitor Mode: External US Comments: PT BACK ON MONITOR AFTER U/S Datetime: 09/18/2018 15:23 Maternal Assessment Level of Consciousness: Keenly Alert, Responsive Headache: Denies Blurred Vision: No Nausea/Vomiting: Hx of Nausea/Vomiting RUQ Epigastric Pain: Denies Facial Edema: None Monitor Mode: External Resting Tone [place]: Relaxed Contraction Comments: UNABLE TO ASSESS Heart Rate FHR Baseline Rate: 165 Monitor Mode: External US FHR Baseline Changes: Tachycardia Variability: Moderate 6-25 bpm Accelerations: 10X10 Decelerations: None Pain Assessment Pain Scale: 8 Pain Presence: Constant Pain Type: Dull; Sharp Pain Location: Abdomen Datetime: 09/18/2018 15:15 Assessment Type: Admission Assessment Vaginal Bleeding: None Maternal Assessment Level of Consciousness: Keenly Alert, Responsive Headache: Denies Blurred Vision: No Respiratory Effort: Unlabored; Regular Rhythm; Equal Expansion Breath Sounds, Left: Clear and Equal Breath Sounds, Right: Clear and Equal Nausea/Vomiting: Denies RUQ Epigastric Pain: Denies Lower Extremities Edema: None Degree: None Upper Extremities Edema: None Degree: None Facial Edema: None Fall Risk Assessment History of Falling: (0) No Secondary Diagnosis: (0) No Ambulatory Aid: (0) Bedrest/Nurse Assist IV Therapy: (0) No Gait: (0) Normal/Bedrest/Immobile Mental Status: (0) Oriented to Own Ability Fall Score: 0 Fall Risk Score Definition: No Risk: No action required Pain Assessment Pain Scale: 8 Pain Presence: Constant Pain Type: Dull; Sharp (Annotations: PAIN IS SHARP, BUT OVER A WIDE AREA) Pain Location: Abdomen (Annotations: PT REPORTS PAIN IN HER BLADDER) Pain Goal: 4 Datetime: 09/18/2018 15:01 Maternal Assessment Level of Consciousness: Keenly Alert, Responsive Headache: Denies Blurred Vision: Unable to assess Nausea/Vomiting: Hx of Nausea/Vomiting RUQ Epigastric Pain: Denies Facial Edema: None Labor Evaluation Frequency: x4 Monitor Mode: External Duration (sec)2399: 50 Quality: Mild Resting Tone [place]: Relaxed Heart Rate FHR Baseline Rate: 165 Monitor Mode: External US FHR Baseline Changes: Tachycardia Variability: Moderate 6-25 bpm Accelerations: 15X15 Decelerations: None Pain Assessment Pain Scale: 8 Pain Presence: Constant Pain Type: Dull Pain Location: Abdomen Datetime: 09/18/2018 14:53 EGA: 33.1 Contractions: Regular (Annotations: Data stored by CPN on behalf of user) Datetime: 09/18/2018 14:29 Fall Score: 0 Fall Risk Score Definition: No Risk: No action required Datetime: 08/28/2018 09:48 Fall Score: 0 Fall Risk Score Definition: No Risk: No action required Datetime: 08/28/2018 09:47 EGA: 30.1
== END 2018-10-02 21:37 | disposition left against medical advice (07) ==
LOC: L-D 19:46 → OBT 19:46
PROVIDERS: ATTEND Obstetrics & Gynecology
DX: O26.893 Other specified pregnancy related conditions, third trimester (principal); R10.9 Unspecified abdominal pain; M54.5 Low back pain; Z3A.35 35 weeks gestation of pregnancy
CPT/HCPCS: 76818; 80307; 81001; 85025; 86850; 86900; 86901; Z7500; G0463